=== PATIENT | female | born 1970 | race Asian ===

== ENCOUNTER 2019-01-22 08:56 | Inpatient (IN) | payer OTHER ==
[~2019-01-22] VITALS: Ht 160 cm; Wt 61.2 kg
[~2019-01-22 08:56] MED LIST: ceFAZolin sod 2 GM in D5W 110 ML IVPB ONE
[2019-01-22 09:27] VITALS: BP 132/85
--- NOTE | 2019-01-22 10:55 | NUR ---
SURGERY CANCELLED. DR. ANETA ARMENDARIZ CAME AND SPOKE TO PATIENT.
[2019-01-28] MEDS ORDERED: ceFAZolin sod 2 GM in D5W 110 ML IVPB ONE (07:00)
[2019-02-11] VITALS (15 sets, daily range): BP systolic 104–133; BP diastolic 62–89
[2019-02-11] MEDS ORDERED: NKM (06:22)
[2019-02-11] MEDS ORDERED: Thrombin 5000 units TOPIC ONE (06:26)
[2019-02-11] MEDS ORDERED: Vancomycin 1gm vial IVPB ONE (06:26)
[2019-02-11] MEDS ORDERED: Ropivacaine 5mg/ml Vial 30ml INJ ONE ×2 (06:27→08:38)
[2019-02-11] MEDS ORDERED: Bacitracin 50000 Units Vial ONE (06:27)
[2019-02-11] MEDS ORDERED: Gelfoam Size TOPIC ONE (06:27)
[2019-02-11] MEDS ORDERED: LR 1000ml 1,000 ML IVLG SCH (06:36)
--- NOTE | 2019-02-11 06:39 | Anethesia Preoperative Eval ---
Anesthesia Pre-op PMH/ROS General Date of Evaluation: Feb 11, 2019 Time of Evaluation: 08:11 Anesthesiologist: Dalia ASA Score: ASA 1 Mallampati Score Class I : Soft palate, uvula, fauces, pillars visible Class II: Soft palate, uvula, fauces visible Class III: Soft palate, base of uvula visible Class IV: Only hard plate visible Mallampati Classification: Class I Surgeon: Jose Diagnosis: Back Pain Surgical Procedure: L4-5, L5-S1 Microdiscectomy, Hemlaminotomy Anesthesia History: none Family History: no anesthesia problems Allergies: Coded Allergies: No Known Allergies (Unverified , 01/22/19) Medications: see eMAR Patient NPO?: Yes NPO Date: Feb 10, 2019 NPO Time: 2200 Anesthesia Pre-op Phys. Exam Physician Exam Last Vital Signs Date Time Temp Pulse Resp B/P (MAP) Pulse Ox O2 Delivery O2 Flow Rate FiO2 02/11/19 06:25 97.6 66 18 133/71 (91) 100 02/11/19 06:20 Room Air Constitutional: NAD Neurologic: CN 2-12 intact Cardiovascular: RRR Respiratory: CTA Gastrointestinal: S/NT/ND Airway Exam Mallampati Score: Class I MO: full ROM: full Teeth: missing, intact Anesthesia Pre-op A/P Risk Assessment & Plan Assessment: ASA 1 Plan: GA, SED, GlideScope Go Status Change Before Surgery: No Pre-Antibiotics Dru Grams Ancef IV Given Within 1 Hr of Incision: Yes Time Given: 08:26 Pierre Gómez MD Feb 11, 2019 06:39
[2019-02-11] MEDS ORDERED: Rocuronium Bromide 50mg/5ml Inj IV ONE (06:41)
[2019-02-11] MEDS ORDERED: oxyCODONE HCL/Acetaminophen 5/325mg ORAL PRN (06:45)
[2019-02-11] MEDS ORDERED: Acetaminophen (Non formulary) 100 ML IV ONE (06:45)
[2019-02-11] MEDS ORDERED: Midazolam 2mg/2ml Inj IVP PRN (06:45)
[2019-02-11] MEDS ORDERED: Metoclopramide 10mg/2ml Inj IVP PRN ×2 (06:45→08:30)
[2019-02-11] MEDS ORDERED: fentaNYL 100 mcg/2 mL IV PRN (06:45)
[2019-02-11] MEDS ORDERED: Meperidine 50mg/ml Inj(FOR RIGORS ONLY) IVP PRN (06:45)
[2019-02-11] MEDS ORDERED: Labetalol 5mg/ml 20ml vial IV PRN (06:45)
[2019-02-11] MEDS ORDERED: Atropine Sulfate 0.4mg/ml inj IVP PRN (06:45)
[2019-02-11] MEDS ORDERED: Ketorolac 30mg Inj IV PRN ×2 (06:45)
[2019-02-11] MEDS ORDERED: HYDROcodone/Acetamin 5/325 tab ORAL PRN ×2 (06:45→08:30)
[2019-02-11] MEDS ORDERED: Hydromorphone 0.5mg/0.5ml inj IVP PRN (06:45)
[2019-02-11] MEDS ORDERED: LORazepam Inj 2mg/ml 1ml IV PRN (06:45)
[2019-02-11] MEDS ORDERED: HYDROcodone/Acetamin 7.5/325 tab ORAL PRN ×2 (06:45→12:38)
[2019-02-11] MEDS ORDERED: DiphenhydrAMINE 50mg/ml Inj IVP PRN (06:45)
[2019-02-11] MEDS ORDERED: Lidocaine 1% MPF 10mg/ml 5ml ONE (06:54)
[2019-02-11] MEDS ORDERED: Dexamethasone 4mg/ml vial ONE (06:54)
[2019-02-11] MEDS ORDERED: Lidocaine 1% Plain 30 ml INJ ONE (06:54)
[2019-02-11] MEDS ORDERED: Sodium Chloride 10ml vial INJ ONE (06:54)
[2019-02-11] MEDS ORDERED: ceFAZolin sod 2 GM in D5W 110 ML IVPB ONE (07:00)
[2019-02-11] MEDS ORDERED: Propofol 1,000mg/ 100ml btl IV ONE (07:00)
--- NOTE | 2019-02-11 07:35 | Immediate Post-Op Evaluation ---
Immediate Post-Op Evalulation Immediate Post-Op Evalulation Procedure: L4-5, L5-S1 Microdiscectomy, Hemlaminotomy Date of Evaluation: Feb 11, 2019 Time of Evaluation: 11:12 IV Fluids: 500 LR Blood Products: 0 Estimated Blood Loss: 50 Urinary Output: 0 Blood Pressure Systolic: 131 Blood Pressure Diastolic: 86 Pulse Rate: 77 Respiratory Rate: 16 O2 Sat by Pulse Oximetry: 100 Temperature (Fahrenheit): 97 Pain Score (1-10): 2 Nausea: No Vomiting: No Complications 0 Patient Status: awake, reacts, patent, extubated, none Hydration Status: adequate Dru Grams Ancef IV Given Within 1 Hr of Incision: Yes Time Given: 08:26 Pierre Gómez MD Feb 11, 2019 07:35
[2019-02-11] MEDS ORDERED: NS Irrig 1000ml IRRIG ONE (08:00)
[2019-02-11] MEDS ORDERED: Sterile Water Irrig 1000ml IRRIG ONE (08:00)
[2019-02-11] MEDS ORDERED: LR 1000ml ONE (08:00)
--- NOTE | 2019-02-11 08:24 | Pre-Procedure Note/Attestation ---
Pre-Procedure Note/Attestation Complete Prior to Procedure Planned Procedure: not applicable Procedure Narrative: Right sided Lumbar 34,45 microdiscectomy hemilaminotomy foraminotomy Indications for Procedure Pre-Operative Diagnosis: Right L34,45 herniation Attestation I attest that I discussed the nature of the procedure; its benefits; risks and complications; and alternatives (and the risks and benefits of such alternatives ), prior to the procedure, with the patient (or the patient's legal primary care sales representative). I attest that, if there was a reasonable possibility of needing a blood transfusion, the patient (or the patient's legal primary care sales representative) was given the [facility] standardized written summary, pursuant to the Parag Julio Blood Safety Act ([place] Health and Safety Code # 1645, as amended). I attest that I re-evaluated the patient just prior to the surgery and that there has been no change in the patient's H&P, except as documented below: Adriel Garcia MD Feb 11, 2019 08:24
--- NOTE | 2019-02-11 08:24 | Brief Operative Note ---
Immediate Post Operative Note Operative Note Chief Complaint: back pain and radiculopathy Pre-op Diagnosis: Right L34,45 herniation Procedure: Right sided Lumbar 34,45 microdiscectomy hemilaminotomy foraminotomy Post-op Diagnosis: same as pre-op Findings: consistent w/pre-op dx studies Surgeon: Jose Sports Betting Manager: Ivon Anesthesiologist: Dalia Anesthesia: general Specimen: none Complications: none Condition: stable Fluids: IV Estimated Blood Loss: minimal Drains: none Implant(s) used?: No Adriel Garcia MD Feb 11, 2019 08:24
[2019-02-11] MEDS ORDERED: HYDROmorphone 1mg/ml Carpuject IVP PRN (08:30)
[2019-02-11] MEDS ORDERED: Morphine Sulfate 4mg/ml Inj (IV USE ONLY) IV PRN ×2 (08:30→12:40)
[2019-02-11] MEDS ORDERED: Naloxone 0.4mg/ml Inj IVP PRN (08:30)
[2019-02-11] MEDS ORDERED: Chloraseptic Spray 20mL Bottle ORAL PRN (08:30)
[2019-02-11] MEDS ORDERED: Morphine Sulfate 2mg/ml Inj(IV/IM USE ONLY) IV PRN (08:30)
[2019-02-11] MEDS ORDERED: Milk of Magnesia 30ml Ud ORAL PRN (08:30)
[2019-02-11] MEDS ORDERED: fentaNYL 100 mcg/2 mL ONE (10:34)
--- NOTE | 2019-02-11 12:13 | Diagnostic Imaging Report ---
Indication: Intraoperative imaging COMPARISON: None FINDINGS: 2 fluoroscopic images were obtained intraoperatively. Crosstable views showing on one image instrumentation posterior to the superior endplate of L4 and instrument posterior to the superior endplate of L5 on the other image. IMPRESSION: Intraoperative imaging as described above
--- NOTE | 2019-02-11 12:15 | NUR ---
NURSE NOTES: Patient transferred from OR via hospital bed, received report from Kayla/RN, Patient is awake, alert, No sign of acute distress noted. Pain level 2/10 at this time. Vital sign are within normal limit. Surgical site is clean, Intact, no bleeding noted. Ice bag placed on surgical site. Daughter at bedside. Bed in low position and locked, Call light within reach. Will continue plan of care.
[2019-02-11] MEDS: Dexamethasone 4mg/ml vial IVP SCH ×3 (13:22→23:46)
[2019-02-11] MEDS: NS w/KCl 20mEq 1000ml 1,000 ML IV SCH ×2 (13:55→23:46)
--- NOTE | 2019-02-11 15:13 | NUR ---
HAND-OFF: Report given to Latasha/RN, Patient is lying semi-carter's, No acute distress/SOB noted. Endorsed plan of care.
--- NOTE | 2019-02-11 15:15 | NUR ---
NURSE NOTES: Received patient from Hilda RN. Alert and oriented x4. Complain of pain 6/10 on surgical site. Will administer pain medication as ordered. Surgical dressing intact and dry. IV dressing intact and dry. Bed lowest position. Call light within reach. Will continue to monitor.
--- NOTE | 2019-02-11 15:30 | NUR ---
NURSE NOTES: Patient ambulated to bathroom and void yellow urine. No complain of pain or discomfort at this time. Will continue to monitor.
[2019-02-11] MEDS: ceFAZolin sod 1 GM in D5W 55 ML IV SCH ×2 (15:44→23:46)
[2019-02-11] MEDS: HYDROcodone/Acetamin 7.5/325 tab ORAL PRN ×2 (15:46→20:55)
--- NOTE | 2019-02-11 16:31 | General Progress Note ---
Assessment/Plan Assessment/Plan: Right L34,45 herniation Right sided Lumbar 34,45 microdiscectomy hemilaminotomy foraminotomy PLAN 1. incentive spirometry 2. SCD 3. PT evaluation and therapy 4. Hydration 5. Pain management 6. discharge once stable with outpatient follow up Subjective Allergies: Coded Allergies: No Known Allergies (Unverified , 01/22/19) Subjective asked to follow post op Objective Last 24 Hour Vital Signs Date Time Temp Pulse Resp B/P (MAP) Pulse Ox O2 Delivery O2 Flow Rate FiO2 02/11/19 16:00 97.9 74 18 115/76 (89) 99 02/11/19 14:30 97.9 74 18 123/79 (94) 100 02/11/19 13:35 97.0 85 18 121/77 (92) 100 02/11/19 13:10 97.0 85 18 121/77 (92) 100 02/11/19 12:40 97.4 80 20 122/77 (92) 99 02/11/19 12:15 97.3 89 18 132/89 (103) 100 02/11/19 12:00 97.9 92 17 119/79 99 Nasal Cannula 3 02/11/19 11:45 95 18 125/79 100 Nasal Cannula 3 02/11/19 11:30 82 17 119/82 100 Nasal Cannula 3 02/11/19 11:20 94 14 122/83 100 Simple Mask 6 02/11/19 11:10 76 16 126/81 100 Simple Mask 6 02/11/19 11:05 76 14 121/78 100 Simple Mask 6 02/11/19 11:01 97.0 71 16 131/86 100 Simple Mask 6 02/11/19 10:58 77 16 100 02/11/19 06:25 97.6 66 18 133/71 (91) 100 02/11/19 06:20 Room Air Intake and Output 02/10/19 02/11/19 19:00 07:00 # Voids 1 Laboratory Tests 02/11/19 11:50: Hepatitis A IgM Antibody [Pending], Hepatitis B Surface Antigen [Pending], Hepatitis B Core IgM Antibody [Pending], Hepatitis C Antibody [Pending], HIV-1 RNA (PCR) log10 Value [Pending], HIV-1 RNA Ultraquantitative (PCR) [Pending], HIV (1&2) Antibody Rapid Negative Height (Feet): 5 Height (Inches): 3.00 Weight (Pounds): 135 Objective WDWN NAD clear breath sounds bilaterally without rhonchi or wheeze [id number] without MRG NABS nontender no HSM no CCE nonfocal Roberth Dash MD Feb 11, 2019 16:31
[2019-02-11] MEDS: Docusate Sod/Senna tab ORAL SCH (17:51)
[2019-02-11] MEDS: Docusate 100mg cap ORAL SCH (17:51)
--- NOTE | 2019-02-11 19:30 | NUR ---
HAND-OFF: Report given to Darion ATWOOD. Patient in stable condition.
--- NOTE | 2019-02-11 20:21 | NUR ---
NURSE NOTES: received AM report from ANGELIC Slaughter. Patient is resting comfortably in bed. No c/o of pain or SOB. Bed in low and locked position. Incision and dressing on neck is c/d/i. Patient talking on phone with boyfriend at bedside.
--- NOTE | 2019-02-11 22:45 | Operative Note - Dictated ---
DATE OF OPERATION: 02/11/2019 SURGEON: Adriel Garcia MD RARE/ENDANGERED SPECIES SPECIALIST: MAXIMO Lugo. ANESTHESIA: General endotracheal anesthesia. PREOPERATIVE DIAGNOSES: 1. Intractable back pain. 2. Intractable leg pain. 3. Worsening radiculopathy. 4. Weakness. 5. Herniated nucleus pulposus, L3-L4 and L4-L5 herniation. 6. Neural foraminal stenosis, L3-L4 and L4-L5. POSTOPERATIVE DIAGNOSES: 1. Intractable back pain. 2. Intractable leg pain. 3. Worsening radiculopathy. 4. Weakness. 5. Herniated nucleus pulposus, L3-L4 and L4-L5 herniation. 6. Neural foraminal stenosis, L3-L4 and L4-L5. PROCEDURES PERFORMED: 1. Right-sided microdiscectomy. 2. L3-L4 and L4-L5 hemilaminotomy, foraminotomy and medial facetectomy. 3. L3-L4 and L4-L5 neural foraminotomy through a transpedicular intraforaminal approach. 4. Use of intraoperative microscope. 5. Supervision and interpretation of intraoperative fluoroscopy. 6. Supervision and interpretation of somatosensory-evoked potential and free running EMG monitoring. 7. Durotomy incidental repair with neurosurgical technique and duraplasty performed. EBL: Less than 100 mL. COMPLICATIONS: None. INDICATIONS FOR THE PROCEDURE: The patient presents for intractable back pain and radiculopathy. The patient tried and failed a prolonged course of conservative management, including but not limited to chiropractic therapy, physical therapy, nonsteroidal anti-inflammatory drugs, medication, ice packs as well as epidural injection. Despite these therapies, the patient still developed recalcitrant pain and elected for definitive management in the form of right-sided microdiscectomy, L3-L4 and L4-L5 hemilaminotomy, foraminotomy and medial facetectomy, L3-L4 and L4-L5 neural foraminotomy through a transpedicular intraforaminal approach, durotomy incidental repair with neurosurgical technique and duraplasty performed. CONSENT: We had a long discussion with the patient regarding definitive surgical treatment options. The patient's MRI demonstrated herniated nucleus pulposus, L3-L4 and L4-L5 herniation, neural foraminal stenosis, L3-L4 and L4-L5 and as a result, I felt the patient would benefit from the discectomy as well as neural foraminotomy at this level. We had a long discussion with the patient regarding the risks, alternatives, and benefits of surgery. Our description of the risks included a discussion in person as well as a signed consent which detailed all pertinent risks and the procedure itself. Briefly, our discussion included but was not limited to infection, bleeding, pseudarthrosis, spinal cord injury, neurovascular injury, dural tear, CSF leak, neuropathy, paralysis, permanent weakness/drop foot, paresthesias blindness, palsy and weakness. The patient understood there may be a need for revision surgery or additional procedures. Approach related complications including dysphonia, dysphagia, blindness, permanent vocal cord and neural injury, hematoma, swallowing and breathing difficulty. Medical complications including liver, kidney, shock, and cardiopulmonary failure. Anesthesia complications including , swelling. Damage to the musculature, larynx (voice injury or loss),esophagus (throat), trachea, blood vessels and muscles (muscular sprain) and lungs (pneumothorax) during this surgical procedure. Injury to deeper structures may be temporary or permanent. The patient understood these and elected to proceed. A written and verbal consent was given. We discussed the pros and cons of all the alternatives. We discussed the uncertainties associated with the decision. Afterwards I assessed the patients understanding and explored their preferences. All questions were answered and no guarantees were given. Medical clearance was obtained prior to surgery OPERATIVE FINDINGS: A broad-based disc herniation at L3-L4 and L4-L5 which encroached on the thecal sac and neural foraminal elements therein. This disc was acute in nature and not calcified. It was mobile and free floating and resected easily. There was also neural foraminal stenosis at L3-L4 and L4-L5. At right-sided L3-L4, there was a large disc herniation noted through a tear in the PLL. The tear in the PLL was approximately 30 degrees cephalad to caudad. Through this, I noted a large pedunculated base of a disc herniated fragments. This disc tissue itself was soft, mobile, not desiccated whatsoever or calcified whatsoever. At L3-L4, the disc itself was spongy, not desiccated whatsoever, not calcified. The fragment itself was encroaching on the exiting neural foramina tissues at the L3-L4 inner space. Incidental durotomy was noted at this level, which must have been due to the adherent tissue of the ligamentum flavum. This was less than 1 mm in size and a small Nurolon suture was used to reapproximate this. Afterwards, Valsalva was performed, which demonstrated no egress of the cerebrospinal fluid. At L4-L5, there was a large disc herniation noted on the right side, which was clearly seen through the traumatic tear and the posterior longitudinal ligament, which was approximately 15 degrees cephalad to caudad almost vertical. This was probed with a nerve hook and egress of herniated nucleus tissue was evaluated and afterwards resected with a combination of narrow pituitaries, , and arthroscopic pituitaries. DESCRIPTION OF PROCEDURE: Under the benefit of general endotracheal anesthesia and with the assistance of the entire operative team, the patient was moved from the [facility] onto the operative table in the prone position on a Brandt frame. The head was secured and positioned appropriately. Bilateral arms were secured with Gel pads and foam and all bony prominences were padded. The bilateral lower extremity SCD and SANAZ hose were placed for DVT prophylaxis. A surgical timeout was called which corroborated our planned procedure. Preoperative Antibiotics were administered within 30 minutes of the incision for prophylaxis. Decadron was given for preoperative steroids. Using lateral radiography, the operative levels were delineated. An incision was marked based on our interpretation of lateral radiography and afterwards the body was prepped and draped in the usual sterile manner. The family was notified that we were ready to commence surgery and were called in the waiting room hourly for updates An incision was based on our lateral fluoroscopic image to center the incision at the L5-S1 interspace. The wound was prepped and draped in the usual sterile fashion. Using a scalpel a midline incision was taken down through the skin and subcutaneous tissues until the overlying hemilamina of L3-L4 and L4-L5 were visualized. Next, using meticulous hemostasis, hemilamotomies were dissected and retractors were placed. Using a Merrill dental, we confirmed placement at the L3-L4 and L4-L5 interspace. We next turned our attention to our decompression. A standard hemilaminotomy foraminotomy medial facetectomy was performed at each level in standard fashion using a Midas-Bandar type AM8 drill bit, straight and angled curettage, and [place] 4 rongeurs until the lateral thecal sac margin and traversing nerve root was visualized. All remainders of the ligamentum flavum and lateral bony margins were resected in total with angled curettage and Kerrison 4 rongeurs until the lateral thecal sac margin and traversing nerve root was visualized and decompressed. We next turned our attention toward our L3-L4 and L4-L5 microdiscectomy on the right side. A [place] 4 was used to gently mobilize the thecal sac medially and this was held retracted with a bayonetted nerve root retractor. It was at this point that we noted a large broad-based disc protrusion with encroachment dorsally on the thecal sac neural foraminal contents. A bayonet and nerve root retractor was then placed carefully to retract the thecal sac and a discectomy was performed using a combination of a long handled 15 blade scalpel, downgoing and straight pituitaries and downgoing curettage. Afterward the disc space was irrigated twice with 20 mL of antibiotic-impregnated saline. All loose and free-floating disc fragments were carefully resected with a narrow pituitary. Having been satisfied with our decompression after our discectomy of all neural elements, we next turned our attention to our neural foraminoplasty/foraminotomy. This was performed through a transpedicular intraforaminal approach using an access probe followed by a neuro check device, which confirmed ventral placement of our nerve root. Once we confirmed we were safe, we next turned our attention towards placement of our size 10 file under direct microscopic visualization and under lateral fluoroscopy. Using pre and post reciprocation imaging, we were able to visualize our direct decompression given the reciprocation allowed for re-creation of the neural foraminal arch at L3-L4 and L4-L5. Afterwards, hemostasis was obtained with 60 mL of antibiotic-impregnated saline followed by FloSeal and Gelfoam. After sponge and needle count were found to be correct, we next turned our attention to closure. Closure consisted of 1-0 Vicryl in standard interrupted fashion. Zosyn was placed deep to the fascia and superficial to the fascia for antibiotic prophylaxis. Skin closure was performed with 2-0 Vicryl in interrupted fashion followed by a running Monocryl for the skin. Final dressings consisted of Dermabond for the superficial skin, Telfa and Tegaderm. The patient tolerated the procedure well. The patient was extubated after the conclusion of surgery without incident. We discussed the findings of the surgery with the family upon completion of the case. At this point the patient will be transferred to the spine floor for further observation. Adriel Garcia M.D. DR: CARLOS JOB#: [id number] CC:
[2019-02-12] VITALS: BP 111/66
[2019-02-12 04:00] VITALS: BP 105/60
[2019-02-12] MEDS: ceFAZolin sod 1 GM in D5W 55 ML IV SCH (06:06)
[2019-02-12] MEDS: Dexamethasone 4mg/ml vial IVP SCH (06:06)
--- NOTE | 2019-02-12 07:07 | 48 Hour Post Anesthesia Eval ---
Post Anesthesia Evaluation Procedure: L4-5, L5-S1 Microdiscectomy, Hemlaminotomy Date of Evaluation: Feb 12, 2019 Time of Evaluation: 06:43 Blood Pressure Systolic: 105 0: 60 Pulse Rate: 72 Respiratory Rate: 18 Temperature (Fahrenheit): 97.5 O2 Sat by Pulse Oximetry: 98 Airway: patent Nausea: No Vomiting: No Pain Intensity: 2 Hydration Status: adequate Cardiopulmonary Status: Stable Mental Status/LOC: patient returned to baseline Follow-up Care/Observations: 0 Post-Anesthesia Complications: 0 Follow-up care needed: N/A Pierre Gómez MD Feb 12, 2019 07:07
--- NOTE | 2019-02-12 07:17 | NUR ---
HAND-OFF: Report given to ANGELIC Mack. Patient resting in bed in stable condition.
--- NOTE | 2019-02-12 07:20 | NUR ---
NURSE NOTES: Received report from ANGELIC Pedro. Pt is a/o x 4, in bed. No respiratory distress noted. Denies pain at this time. Back surgical site dressing is C/D/I. Lt hand IV fluid is patent. Bed in lowest position, call light within reach. Will continue to monitor.
[2019-02-12 08:00] VITALS: BP 109/67
[2019-02-12] MEDS: Docusate 100mg cap ORAL SCH (08:36)
[2019-02-12] MEDS: Docusate Sod/Senna tab ORAL SCH (08:36)
[2019-02-12] MEDS: HYDROcodone/Acetamin 7.5/325 tab ORAL PRN (08:37)
--- NOTE | 2019-02-12 09:20 | NUR ---
NURSE NOTES: Dr. Garcia came in the morning and ordered d/c home after 2pm. Noted and carried out.
--- NOTE | 2019-02-12 09:27 | NUR ---
P.T Note: P.T evaluation completed and tx initiated per spinal protocol. Please refer to P.T evaluation for current functional status.
[2019-02-12] MEDS: NS w/KCl 20mEq 1000ml 1,000 ML IV SCH (11:12)
--- NOTE | 2019-02-12 11:21 | NUR ---
NURSE NOTES: PT recommended raised toilet seat for the pt. Dr. Garcia was notified and MD ordered. Noted and carried out.
[2019-02-12] MEDS ORDERED: NORCO 10-325 T1 EACH ORAL (11:34)
[2019-02-12] MEDS ORDERED: CARISOPRODOL350 MG ORAL (11:34)
[2019-02-12 12:00] VITALS: BP 108/60
--- NOTE | 2019-02-12 13:56 | General Progress Note ---
Assessment/Plan Assessment/Plan: Right L34,45 herniation Right sided Lumbar 34,45 microdiscectomy hemilaminotomy foraminotomy PLAN 1. incentive spirometry 2. SCD 3. PT evaluation and therapy 4. Hydration 5. Pain management 6. discharge home with RX Subjective Allergies: Coded Allergies: No Known Allergies (Unverified , 01/22/19) Subjective overall improved from overnight Objective Last 24 Hour Vital Signs Date Time Temp Pulse Resp B/P (MAP) Pulse Ox O2 Delivery O2 Flow Rate FiO2 02/12/19 12:00 98.5 76 18 108/60 (76) 98 02/12/19 09:00 Room Air 02/12/19 08:00 97.6 79 18 109/67 (81) 96 02/12/19 07:07 72 18 98 02/12/19 04:00 97.5 72 18 105/60 (75) 98 02/12/19 00:00 97.6 73 18 111/66 (81) 97 02/11/19 21:00 Room Air 02/11/19 20:00 97.7 78 18 104/62 (76) 97 02/11/19 16:00 97.9 74 18 115/76 (89) 99 02/11/19 14:30 97.9 74 18 123/79 (94) 100 Intake and Output 02/11/19 02/12/19 19:00 07:00 Intake Total 1100 ml 840 ml Output Total 650 ml Balance 450 ml 840 ml Intake Oral 300 ml 240 ml IV Total 800 ml 600 ml Output Urine Total 600 ml Estimated Blood Loss 50 ml # Voids 1 1 Height (Feet): 5 Height (Inches): 3.00 Weight (Pounds): 135 Objective WDWN NAD clear breath sounds bilaterally without rhonchi or wheeze [id number] without MRG NABS nontender no HSM no CCE nonfocal Roberth Dash MD Feb 12, 2019 13:56
--- NOTE | 2019-02-12 14:10 | NUR ---
NURSE NOTES: Discharge instruction, written prescription, raised toilet seat were given. Removed IV access, arm band. Pt a/o x 4. Pt discharged with her friend in stable condition.
--- NOTE | 2019-02-14 08:06 | Discharge Summary ---
Discharge Summary Discharge Summary _ DATE OF ADMISSION: 02/11/2019 DATE OF DISCHARGE: 02/12/2019 DISCHARGED BY: Dr. Adriel Garcia SURGEON: Dr. Adriel Garcia ASSEMBLER FINGER BUFFS: Dr. Yari Dash BRIEF HOSPITAL COURSE: Patient is a 48-year-old female, who had intractable back pain and radiculopathy. MRI demonstrated herniated nucleus pulposus, L3-L4 and L4-L5 herniation, neural foraminal stenosis, L3-L4 and L4-L5. Patient tried and failed a prolonged course of conservative management, including but not limited to chiropractic, physical therapy, nonsteroidal anti-inflammatory drugs, ice pack as well as epidural injection. Despite these therapies, patient still developed recalcitrant pain and elected for a definitive management. She was admitted on 02/11/2019 and underwent right-sided lumbar L3-L4 L4-L5 microdiscectomy, hemilaminotomy and foraminotomy. She tolerated procedure well. Surgery was uneventful. Post-operatively, patient was admitted for post- op care. She was followed by service crew supervisor Dr. Dash. She was placed on SCDs for DVT prophylaxis and was encouraged use of incentive spirometer. Patient was given pain management. She was seen by PT. Diet was advanced. Incision was clean, dry and intact. Patient was ambulating well with good pain control and was tolerating diet. Patient was eventually cleared for discharge home. FINAL DIAGNOSES: 1. Intractable back pain. 2. Intractable leg pain. 3. Worsening radiculopathy. 4. Weakness. 5. Herniated nucleus pulposus, L3-L4 and L4-L5 herniation. 6. Neural foraminal stenosis, L3-L4 and L4-L5. PROCEDURES PERFORMED: 1. Right-sided microdiscectomy. 2. L3-L4 and L4-L5 hemilaminotomy, foraminotomy and medial facetectomy. 3. L3-L4 and L4-L5 neural foraminotomy through a transpedicular intraforaminal approach. 4. Use of intraoperative microscope. 5. Supervision and interpretation of intraoperative fluoroscopy. 6. Supervision and interpretation of somatosensory-evoked potential and free running EMG monitoring. 7. Durotomy incidental repair with neurosurgical technique and duraplasty performed. (Refer to Operative Report) DISCHARGE DISPOSITION: Patient was discharged home. DISCHARGE MEDICATIONS: Refer to Medication Reconciliation Sheet. DISCHARGE INSTRUCTIONS: Post-op instructions given. Follow-up in a week. I have been assigned to complete a DC summary on this account, I was not involved with the patient's management.--AAMIR Cano Jacqueline Robles NP Feb 14, 2019 08:06
== END 2019-02-12 14:07 | disposition home or self-care (01) | DRG 520 ==
LOC: UNDOADMIN 08:56 → SDSOVERFLO 08:56 → EDSEX 02-11 05:17 → SDSOVERFLO 02-11 05:17 → 3E 02-11 12:32
DX: M51.16 Intervertebral disc disorders with radiculopathy, lumbar region (principal); M48.061 Spinal stenosis, lumbar region without neurogenic claudication; R53.1 Weakness
CPT/HCPCS: 36415; 72020; 76000; 86703; 86705; 86709; 86803; 86850; 86900; 86901; 87081; 87340; 87536; 94003; 94150; C9399; J2405